=== PATIENT | female | born 1995 | race African-American/Black ===

== ENCOUNTER 2016-12-26 10:24 | Emergency (ER) | payer OTHER ==
[~2016-12-26] VITALS: Ht 175.3 cm; Wt 98.0 kg
[~2016-12-26 10:24] MED LIST: PREN1TAB33
[2016-12-26] MEDS ORDERED: ONDANSETRON HCL 4MG/2ML VIAL IV STA (11:45)
[2016-12-26] MEDS ORDERED: SODIUM CHLORIDE 0.9% 1,000 ML IV ONE (11:45)
[2016-12-26 12:27] LABS: CLARITY URINE CLOUDY (CLEAR); COLOR URINE DARK YELLOW (YELLOW); GLUCOSE URINE NEGATIVE (NEGATIVE); KETONES URINE 1+ (NEGATIVE); LEUKOCYTE ESTERASE URINE 2+ (NEGATIVE); NITRITE URINE POSITIVE (NEGATIVE); OCCULT BLOOD URINE NEGATIVE (NEGATIVE); PH URINE >=9.0 (4.5-8.0); PROTEIN URINE 1+ (NEGATIVE); SPECIFIC GRAVITY URINE 1.016 (1.005-1.030)
[2016-12-26 12:37] LABS: BACTERIA URINE 3+; SQUAMOUS EPITHELIAL CELL URINE 3+ /lpf (RARE/1+); YEAST URINE 1+
[2016-12-26 12:39] LABS: RBC URINE NONE SEEN /hpf (0-2)
[2016-12-26] MEDS ORDERED: KETOROLAC 30MG/ML VIAL IV STA (13:16)
[2016-12-26 15:30] VITALS: BP 103/55
== END 2016-12-26 15:32 | disposition home or self-care (01) ==
LOC: ER 10:24
DX: A08.4 Viral intestinal infection, unspecified (principal); N39.0 Urinary tract infection, site not specified; M54.5 Low back pain; F12.10 Cannabis abuse, uncomplicated
CPT/HCPCS: 81001; 81025; 96361; 96374; 96375; 99285; J1885; J2405; J7030; Z7610

== ENCOUNTER 2017-12-07 18:43 | Emergency (ER) | payer OTHER ==
[~2017-12-07] VITALS: Ht 167.6 cm; Wt 102.0 kg
[2017-12-08 00:39] VITALS: BP 112/67
== END 2017-12-08 00:40 | disposition home or self-care (01) ==
LOC: ER 20:18
DX: S80.01XA Contusion of right knee, initial encounter (principal); F12.10 Cannabis abuse, uncomplicated; X50.1XXA Overexertion from prolonged static or awkward postures, initial encounter; Y93.89 Activity, other specified; Y92.89 Other specified places as the place of occurrence of the external cause; Y99.8 Other external cause status
CPT/HCPCS: 73562; 81025; 99284; L1830; Z7610